=== PATIENT | female | born 1990 | race African-American/Black ===

== ENCOUNTER 2022-01-05 08:07 | Outpatient (CLI) | payer OTHER, SELFPAY | END 2022-01-05 08:08 | disposition home or self-care (01) | LOC: CHSIMG 08:09 | PROVIDERS: PCP Internal Medicine; Visit Provider Internal Medicine | DX: G37.3 Acute transverse myelitis in demyelinating disease of central nervous system (principal) | CPT/HCPCS: 99199 ==

== ENCOUNTER 2024-04-11 10:00 | Outpatient (CLI) | payer BC, SELFPAY ==
--- NOTE | 2024-04-11 11:30 | NEURO_ITS ---
Impression: # Complains of right hand numbness. Non-diabetic. # Subtle sensory right Carpal Tunnel Syndrome. # No ulnar neuropathy. # Normal needle/EMG exam. Nerve Conduction Studies Anti Sensory Summary Table Stim Site NR Peak (ms) P-T Amp (?V) Site1 Site2 Delta-P (ms) Dist (cm) Champ (m/s) Right Median Anti Sensory (2-3nd Digit) Wrist 3.2 66.9 Wrist 2-3nd Digit 3.2 14.0 44 Wrist 3.2 44.7 Wrist 2-3nd Digit 3.2 14.0 44 Right Radial Anti Sensory (Base 1st Digit) Wrist 1.7 33.6 Wrist Base 1st Digit 1.7 0.0 Right Ulnar Anti Sensory (5th Digit) Wrist 2.1 55.7 Wrist 5th Digit 2.1 14.0 67 Motor Summary Table Stim Site NR Onset (ms) O-P Amp (mV) Site1 Site2 Delta-0 (ms) Dist (cm) Champ (m/s) Right Median Motor (Abd Poll Brev) Wrist 3.4 5.0 Elbow Wrist 4.9 29.0 59 Elbow 8.3 2.6 ELB/ADM Wrist 0.4 0.0 ELB/ADM 3.0 4.1 Erbs ELB/ADM 5.3 0.0 Erbs 8.3 4.0 Right Ulnar Motor (Abd Dig Minimi) Wrist 2.0 9.8 A Elbow Wrist 5.4 32.0 59 A Elbow 7.4 7.4 F Wave Studies NR F-Lat (ms) L-R F-Lat (ms) Right Median (Mrkrs) (Abd Poll Brev) 28.44 Right Ulnar (Mrkrs) (Abd Dig Min) 27.68 EMG Side Muscle Nerve Root Ins Act Fibs Amp Dur Recrt Comment Right 1stDorInt Ulnar C8-T1 Nml Nml Nml Nml Nml Right Ext Indicis Radial (Post Int) C7-8 Nml Nml Nml Nml Nml Right Ext Digitorum Radial (Post Int) C7-8 Nml Nml Nml Nml Nml Right BrachioRad Radial C5-6 Nml Nml Nml Nml Nml Right PronatorTeres Median C6-7 Nml Nml Nml Nml Nml Right Abd Poll Brev Median C8-T1 Nml Nml Nml Nml Nml Right ABD Dig Min Ulnar C8-T1 Nml Nml Nml Nml Nml MTDD
== END 2024-04-11 10:01 | disposition home or self-care (01) ==
LOC: ANHNEURO 10:03
PROVIDERS: PCP Internal Medicine; Visit Provider Plastic Surgery
DX: G56.01 Carpal tunnel syndrome, right upper limb (principal)
CPT/HCPCS: 95886; 95909

== ENCOUNTER 2024-06-04 09:32 | Outpatient (CLI) | payer BC, SELFPAY ==
--- NOTE | ~2024-06-04 | CT_ITS ---
CT of the Abdomen and Pelvis: Indication: Abdominal pain Technique: 2.5 mm axial scans were obtained through the abdomen and pelvis following intravenous adm inistration of 100 cc of Omnipaque 350. Dose reduction technique was used on this scan by utilizing a utomated exposure control and iterative reconstruction technique. The dose-length product (DLP) was 1 108.68 mGy-cm. Findings: Scans through the lung bases are unremarkable. The liver, spleen, pancreas, gallbladder, adrenals and kidneys are within normal limits. No evidence of aortic aneurysm. No lymphadenopathy. No bowel obstruction or bowel wall thickening. There is no evidence to suggest acute appendicitis. Sm all fat-containing umbilical hernia noted. Images through the pelvis were performed. Urinary bladder unremarkable. No adnexal mass seen. There i s trace free fluid in the pelvis. Impression: Trace free fluid in the pelvis, nonspecific. Small fat-containing umbilical hernia. Reviewed, dictated and finalized at [facility]. Impression: Trace free fluid in the pelvis, nonspecific. Small fat-containing umbilical hernia.
== END 2024-06-04 09:33 | disposition home or self-care (01) ==
LOC: CHSIMG 09:35
PROVIDERS: PCP Internal Medicine; Visit Provider Nurse Practitioner Family
DX: R10.9 Unspecified abdominal pain (principal); R11.10 Vomiting, unspecified; K92.1 Melena; K42.9 Umbilical hernia without obstruction or gangrene
CPT/HCPCS: 74177; Q9967